=== PATIENT | male | born 1945 | race Caucasian/White ===

== ENCOUNTER 2023-05-27 13:51 | Outpatient (CLI) | payer MEDICARE, SELFPAY | END 2023-05-27 13:52 | disposition home or self-care (01) | LOC: MRI 13:52 | PROVIDERS: Visit Provider Internal Medicine | DX: C61 Malignant neoplasm of prostate (principal) | CPT/HCPCS: 72195 ==

== ENCOUNTER 2023-09-07 12:30 | Outpatient (RCR) | payer MEDICARE, SELFPAY ==
--- NOTE | 2023-05-27 11:13 | ONC.NURNOTE ---
Cony here for initial visit with Dr Braun and started abiraterone on 05/18/23 to move abiraterone from [facility] to [facility] Miko Braun submitted eRX reviewed possible side effects and abiraterone handout provided handout also given on Miko Dietrich and refill process discussed lab and follow up schedule- calendar given
--- NOTE | 2023-06-04 10:03 | ONC.NURNOTE ---
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
--- NOTE | 2023-06-16 14:36 | PC.NURSE ---
Pt did not arrive for his scheduled for lab work appointment today at 1:30 PM. Called at 2:35 and LM on pt's primary number. Invited ptto call back to re-schedule.
[2023-06-17 13:21] LABS: Basophils Absolute Auto 0.02 K/uL (0.00-0.30); Basophils Percent Auto 0.2 % (0.0-3.0); Eosinophils Absolute Auto 0.11 K/uL (0.00-0.50); Hematocrit 42.9 % (37.0-53.0); Hemoglobin* 14.2 gm/dL (13.5-17.5); Immature Granulocytes Abs Auto 0.04 K/uL (0.00-0.30); Immature Granulocytes Pct Auto 0.4 %; Lymphocytes Percent Auto 16.4 % (20-44); Mean Corpuscular HGB Conc 33 gm/dL (32-36); Mean Corpuscular Hemoglobin 29 pg (26-34); Mean Corpuscular Volume 88 fL (80-100); Monocytes Percent Auto 3.6 % (0.0-11.0); Neutrophils Percent Auto 78.4 % (42.0-72.0); Platelet Count* 222 K/uL (140-440); Red Blood Count 4.88 m/uL (4.30-5.90); White Blood Count* 10.72 K/uL (4.50-11.00)
[2023-06-17 13:26] LABS: Albumin* 4.3 g/dL (3.3-5.0); Chloride* 105 mmol/L (96-114); Slide Review Reflex No
[2023-06-17 13:27] LABS: Potassium* 4.5 mmol/L (3.6-5.1); Sodium* 138 mmol/L (135-149)
[2023-06-17 13:29] LABS: Alkaline Phosphatase* 81 U/L (40-150); Anion Gap 4 mEq/L (7-15); Aspartate Amino Transferase* 28 U/L (12-35); Bilirubin Total* 0.6 mg/dL (0.1-1.5); Blood Urea Nitrogen* 16 mg/dL (7-30); Carbon Dioxide* 29 mmol/L (20-32); Creatinine* 0.7 mg/dL (0.5-1.5); Estimated Glomerular Filt Rate 94 ml/min
[2023-06-17 13:30] LABS: Alanine Aminotransferase* 25 U/L (4-50); Calcium* 9.9 mg/dL (8.4-10.6); Glucose* 196 mg/dL (60-115)
[2023-06-17 14:00] LABS: PSA Diagnostic* 0.51 ng/mL (0.10-4.00)
--- NOTE | 2023-06-17 14:34 | ONC.NURNOTE ---
Lab results reviewed with patient, including PSA, noted glucose- discussed with patient results to Dr Braun for review patient requests all labs be faxed to Dr Chou at [phone]
[2023-07-14 12:39] LABS: Basophils Absolute Auto 0.02 K/uL (0.00-0.30); Basophils Percent Auto 0.3 % (0.0-3.0); Eosinophils Absolute Auto 0.14 K/uL (0.00-0.50); Hematocrit 40.9 % (37.0-53.0); Hemoglobin* 13.8 gm/dL (13.5-17.5); Immature Granulocytes Abs Auto 0.03 K/uL (0.00-0.30); Immature Granulocytes Pct Auto 0.4 %; Lymphocytes Percent Auto 5.5 % (20-44); Mean Corpuscular HGB Conc 34 gm/dL (32-36); Mean Corpuscular Hemoglobin 29 pg (26-34); Mean Corpuscular Volume 86 fL (80-100); Monocytes Percent Auto 7.8 % (0.0-11.0); Platelet Count* 140 K/uL (140-440); RDW Coefficient of Variation % 12.3 % (11.5-15.5); Red Blood Count 4.74 m/uL (4.30-5.90); White Blood Count* 7.03 K/uL (4.50-11.00)
[2023-07-14 12:43] LABS: Slide Review Reflex No
[2023-07-14 12:51] LABS: Albumin* 4.2 g/dL (3.3-5.0); Chloride* 109 mmol/L (96-114); Sodium* 142 mmol/L (135-149)
[2023-07-14 12:53] LABS: Creatinine* 0.8 mg/dL (0.5-1.5); Estimated Glomerular Filt Rate 91 ml/min
[2023-07-14 12:54] LABS: Alanine Aminotransferase* 24 U/L (4-50); Alkaline Phosphatase* 72 U/L (40-150); Anion Gap 7 mEq/L (7-15); Aspartate Amino Transferase* 25 U/L (12-35); Bilirubin Total* 0.3 mg/dL (0.1-1.5); Blood Urea Nitrogen* 24 mg/dL (7-30); Carbon Dioxide* 26 mmol/L (20-32); Glucose* 128 mg/dL (60-115); Total Protein* 6.7 g/dL (6.0-8.3)
[2023-07-14 12:55] LABS: Calcium* 9.9 mg/dL (8.4-10.6)
== END 2023-11-23 23:59 | disposition home or self-care (01) ==
LOC: CCIC 12:30
PROVIDERS: Visit Provider Internal Medicine Hematology & Oncology
DX: C61 Malignant neoplasm of prostate (principal)
CPT/HCPCS: 36415; 80053; 84153; 85025; 99202; 99205; 99214; G0463